=== PATIENT | female | born 1975 | race Two or more races ===

== ENCOUNTER 2020-01-26 15:03 | Emergency (ER) | payer MEDICAID ==
[~2020-01-26] VITALS: Ht 66 cm; Wt 90.7 kg
--- NOTE | 2020-01-26 15:24 | NUR ---
ED Nurse Note: Pt from home walked in due to abd pain that radiates to her back. Also c/o headache, diarrhea and fever at home. temp 99.1 f in triage. Denies coughing or SOB. AAO x4 and ambulatory. No respiratory distress.
[2020-01-26] MEDS ORDERED: Morphine Sulfate 2mg/ml Inj(IV/IM USE ONLY) IVP ONE (15:45)
[2020-01-26] MEDS ORDERED: Metoclopramide 10mg/2ml Inj IVP ONE (15:45)
[2020-01-26] MEDS ORDERED: Omnipaque-300 100ml vial INJ PRN (15:45)
[2020-01-26] MEDS ORDERED: DiphenhydrAMINE 50mg/ml Inj IVP ONE (15:45)
--- NOTE | 2020-01-26 15:52 | Emergency Room Report ---
History of Present Illness General Chief Complaint: Abdominal Pain Source: Patient Present Illness HPI Patient presents with abdominal pain. It has been going on for 6 days. She has a history of gastritis and feels like this is what the cause is. It is epigastric rating towards the back but also radiating down towards the lower abdomen. Yesterday she started having diarrhea that was normal color without any blood. She also felt a fever yesterday but did not document it. She denies any vomiting. She denies any significant COVID-19 exposures at this time and has been social isolating at home and not working. She took acetaminophen last night with some relief of the fever and also a slight decrease in the abdominal pain. She rates the pain 10/10 at this time. She denies dysuria. Her last menstruation was normal and she does not believe she is . No unusual foods or foreign travel. 2 years ago she had a CT scan. She was diagnosed with gastritis. When she was younger and just emigrated to the [place] she cut her left arm. She denies any suicidal or homicidal ideation at this time. Patient denies drinking alcohol or smoking cigarettes. No sore throat, chest pain, palpitations, shortness of breath, joint pain, rashes, depression, anxiety, visual changes, dizziness, headache. Allergies: Coded Allergies: No Known Allergies (Unverified , 01/26/20) COVID-19 Screening Contact w/high risk pt: No Recent Travel to affected area: No Experienced COVID-19 symptoms?: No COVID-19 Testing performed [employer]ODUCTION [employer]: No COVID-19 Screening: Negative COVID-19 Patient History Past Medical History: see triage record Social History: Denies: smoking, alcohol use, drug use Social History Narrative Home Last Menstrual Period: 01/20/20 Now: No Reviewed Nursing Documentation: PMH: Agreed; PSxH: Agreed Nursing Documentation-PMH Past Medical History: No History, Except For Hx Asthma: Yes Review of Systems All Other Systems: negative except mentioned in HPI Physical Exam Vital Signs Date Time Temp Pulse Resp B/P (MAP) Pulse Ox O2 Delivery O2 Flow Rate FiO2 01/26/20 15:14 99.1 105 16 143/80 (101) 98 Room Air Sp02 EP Interpretation: reviewed, normal General Appearance: well appearing, no apparent distress, GCS 15 Head: normocephalic, atraumatic Eyes: bilateral eye normal inspection, bilateral eye PERRL, bilateral eye EOMI ENT: moist mucus membranes Neck: supple Respiratory: lungs clear, normal breath sounds Cardiovascular #1: regular rate, rhythm Cardiovascular #2: 2+ radial (R) Gastrointestinal: normal inspection, normal bowel sounds, no mass, non- distended, no guarding, no rebound, tenderness - Diffuse but more right-sided, overweight Genitourinary: no CVA tenderness Musculoskeletal: back normal, normal range of motion, gait/station normal Neurologic: alert, oriented x3, grossly normal Psychiatric: mood/affect normal Skin: no rash, warm/dry, other - Old intention renteria left forearm Medical Decision Making Diagnostic Impression: Primary Impression: Acute diverticulitis ER Course Pt presents with abdominal pain, possible fever and diarrhea. DDx gastritis, gastroenteritis, diverticulitis, pancreatitis, food poisoning amongst others. Evaluation with labs and CT abdomen. She feels this is her gastritis however with the fever and diarrhea this is less likely. This is a nonsurgical abdomen at this time. Patient treated with Pepcid, Reglan and a small dose of morphine with IV hydration. As she has been social isolating, risk of COVID-19 extremely low. CBC with elevated white count. CMP with minimally elevated glucose and AST. Lipase normal. Urinalysis clear. Serum negative. CT scan reveals uncomplicated diverticulitis. Other findings not contributing to diagnosis. IV antibiotics administered. Patient still complaining about pain. Morphine repeated. Discussed findings with patient. Discussed that she is being observed as an outpatient and if she is not doing well to return. Patient stable for outpatient observation and treatment. Laboratory Tests Test 01/26/20 16:30 White Blood Count 12.5 K/UL (4.8-10.8) H Red Blood Count 5.12 M/UL (4.20-5.40) Hemoglobin 11.9 G/DL (12.0-16.0) L Hematocrit 38.2 % (37.0-47.0) Mean Corpuscular Volume 75 FL (80-99) L Mean Corpuscular Hemoglobin 23.2 PG (27.0-31.0) L Mean Corpuscular Hemoglobin Concent 31.1 G/DL (32.0-36.0) L Red Cell Distribution Width 16.4 % (11.6-14.8) H Platelet Count 211 K/UL (150-450) Mean Platelet Volume 9.3 FL (6.5-10.1) Neutrophils (%) (Auto) 81.5 % (45.0-75.0) H Lymphocytes (%) (Auto) 12.9 % (20.0-45.0) L Monocytes (%) (Auto) 4.1 % (1.0-10.0) Eosinophils (%) (Auto) 1.0 % (0.0-3.0) Basophils (%) (Auto) 0.5 % (0.0-2.0) Prothrombin Time 10.3 SEC (9.30-11.50) Prothrombin Time INR 0.9 (0.9-1.1) Activated Partial Thromboplast Time 29 SEC (23-33) Urine Color Pale yellow Urine Appearance Clear Urine pH 8 (4.5-8.0) Urine Specific Orange 1.015 (1.005-1.035) Urine Protein 2+ (NEGATIVE) H Urine Glucose (UA) Negative (NEGATIVE) Urine Ketones Negative (NEGATIVE) Urine Blood Negative (NEGATIVE) Urine Nitrite Negative (NEGATIVE) Urine Bilirubin Negative (NEGATIVE) Urine Urobilinogen Normal MG/DL (0.0-1.0) Urine Leukocyte Esterase Negative (NEGATIVE) Urine RBC 0 /HPF (0 - 2) Urine WBC 0-2 /HPF (0 - 2) Urine Squamous Epithelial Cells Many /LPF (NONE/OCC) H Urine Amorphous Sediment Moderate /LPF (NONE) H Urine Bacteria Occasional /HPF (NONE) Sodium Level 141 MMOL/L (136-145) Potassium Level 3.7 MMOL/L (3.5-5.1) Chloride Level 103 MMOL/L (98-107) Carbon Dioxide Level 29 MMOL/L (21-32) Anion Gap 9 mmol/L (5-15) Blood Urea Nitrogen 8 mg/dL (7-18) Creatinine 0.7 MG/DL (0.55-1.30) Estimated Glomerular Filtration Rate > 60 mL/min (>60) Glucose Level 110 MG/DL (74-106) H Calcium Level 8.0 MG/DL (8.5-10.1) L Ferritin 32 NG/ML (8-388) Total Bilirubin 0.3 MG/DL (0.2-1.0) Aspartate Amino Transferase (AST) 19 U/L (15-37) Alanine Aminotransferase (ALT) 20 U/L (12-78) Alkaline Phosphatase 133 U/L (46-116) H Lactate Dehydrogenase 194 U/L (81-234) C-Reactive Protein, Quantitative 6.4 mg/dL (0.00-0.90) H Total Protein 7.8 G/DL (6.4-8.2) Albumin 3.2 G/DL (3.4-5.0) L Globulin 4.6 g/dL Albumin/Globulin Ratio 0.7 (1.0-2.7) L Lipase 97 U/L (73-393) Human Chorionic Gonadotropin, Qual Negative (NEGATIVE) CT/MRI/US Diagnostic Results CT/MRI/US Diagnostic Results : Imaging Test Ordered: Abdomen and pelvis Impression 1. Colonic hepatic flexure region findings could represent mild uncomplicated acute diverticulitis or colitis in the proper context. 2. Correlate with outpatient colonoscopy to exclude infiltrative neoplasm after the acute phase of illness has resolved. 3. Prominent mesenteric lymph nodes. This could be incidental, reactive, or could represent mesenteric adenitis in the proper context. 4. Normal appendix. 5. Hepatic steatosis, correlate to exclude steatohepatitis. 6. Consider outpatient pelvic ultrasound for left adnexal 3.8 cm almost assuredly benign functional follicular cyst which is of no acute clinical significance. Last Vital Signs Date Time Temp Pulse Resp B/P (MAP) Pulse Ox O2 Delivery O2 Flow Rate FiO2 01/26/20 21:05 98.8 81 16 144/62 99 Room Air Status: improved Scripts Ondansetron Odt* (ZOFRAN ODT*) 4 Mg Tab.rapdis 4 MG BC EVERY 8 HOURS PRN for Nausea & Vomiting, #6 TAB 0 Refills Prov: Chet Ren MD 01/26/20 Ibuprofen* (MOTRIN*) 600 Mg Tablet 600 MG ORAL Q6H PRN for FOR PAIN, #16 TAB 0 Refills Prov: Chet Ren MD 01/26/20 Acetaminophen With Codeine (T#3) (TYLENOL #3 TAB*) Y Tab 1 TAB ORAL Q8H PRN for For Pain, #8 TAB Prov: Chet Ren MD 01/26/20 Metronidazole* (FLAGYL*) 500 Mg Tablet 500 MG ORAL BID, #14 TAB Prov: Chet Ren MD 01/26/20 Cephalexin* (KEFLEX*) 500 Mg Capsule 500 MG ORAL EVERY 6 HOURS, #28 CAP Prov: Chet Ren MD 01/26/20 Referrals: NOT CHOSEN [facility]/,REFERRING (PCP) Chet Ren MD Jan 26, 2020 15:52
[2020-01-26 16:00] VITALS: BP 138/69
--- NOTE | 2020-01-26 16:43 | NUR ---
ED Nurse Note: Collected blood and urine then sent.
[2020-01-26 16:53] LABS: APPEARANCE,URINE CLEAR; BILIRUBIN, URINE NEGATIVE (NEGATIVE); COLOR,URINE PALE YELLOW; GLUCOSE, URINE (UA) NEGATIVE (NEGATIVE); KETONES,URINE NEGATIVE (NEGATIVE); LEUKOCYTE ESTERASE ,URINE NEGATIVE (NEGATIVE); NITRITE,URINE NEGATIVE (NEGATIVE); PH,URINE 8 (4.5-8.0); PROTEIN,URINE 2+ (NEGATIVE); UROBILINOGEN,URINE NORMAL MG/DL (0.0-1.0)
[2020-01-26 16:59] LABS: BASOPHILS % (AUTO) 0.5 % (0.0-2.0); HEMATOCRIT 38.2 % (37.0-47.0); HEMOGLOBIN 11.9 G/DL (12.0-16.0); LYMPHOCYTES % (AUTO) 12.9 % (20.0-45.0); MEAN CORPUSCULAR VOLUME 75 FL (80-99); MONOCYTES % (AUTO) 4.1 % (1.0-10.0); NEUTROPHILS % (AUTO) 81.5 % (45.0-75.0); PLATELET COUNT 211 K/UL (150-450); RED BLOOD COUNT 5.12 M/UL (4.20-5.40); RED CELL DISTRIBUTION WIDTH 16.4 % (11.6-14.8); WHITE BLOOD COUNT 12.5 K/UL (4.8-10.8)
[2020-01-26 17:04] LABS: ANION GAP 9 mmol/L (5-15); BLOOD UREA NITROGEN 8 mg/dL (7-18); CARBON DIOXIDE 29 MMOL/L (21-32); CHLORIDE 103 MMOL/L (98-107); CREATININE 0.7 MG/DL (0.55-1.30); INR 0.9 (0.9-1.1); POTASSIUM 3.7 MMOL/L (3.5-5.1); SODIUM 141 MMOL/L (136-145)
[2020-01-26 17:23] LABS: ALANINE AMINOTRANSFERASE 20 U/L (12-78); ALBUMIN 3.2 G/DL (3.4-5.0); ALBUMIN/GLOBULIN RATIO 0.7 (1.0-2.7); ALKALINE PHOSPHATASE 133 U/L (46-116); ASPARTATE AMINO TRANSFERASE 19 U/L (15-37); BILIRUBIN,TOTAL 0.3 MG/DL (0.2-1.0); FERRITIN 32 NG/ML (8-388); LACTATE DEHYDROGENASE 194 U/L (81-234)
--- NOTE | 2020-01-26 17:40 | Diagnostic Imaging Report ---
EXAM: CT Abdomen and Pelvis With Intravenous Contrast CLINICAL HISTORY: ABD PAIN TECHNIQUE: Axial computed tomography images of the abdomen and pelvis with intravenous contrast. CTDI is 27 mGy and DLP is 1416 mGy-cm. One or more of the following dose reduction techniques were used: automated exposure control, adjustment of the mA and/or kV according to patient size, use of iterative reconstruction technique. Coronal and sagittal reformatted images were created and reviewed. COMPARISON: No relevant prior studies available. FINDINGS: Lung bases: Unremarkable. No mass. No consolidation. ABDOMEN: Liver: Hepatic steatosis, correlate to exclude steatohepatitis. Gallbladder and bile ducts: Unremarkable. No calcified stones. No ductal dilation. Pancreas: Unremarkable. No mass. No ductal dilation. Spleen: Unremarkable. No splenomegaly. Adrenals: Unremarkable. No mass. Kidneys and ureters: Unremarkable. No solid mass. No hydronephrosis. Stomach and bowel: Hepatic flexure pericolonic haziness and stranding could represent mild uncomplicated acute diverticulitis without perforation or abscess or could represent an infectious or inflammatory colitis. Regional mild mesenteric vascular prominence suggests hyperemia. Coronal series 9 image 29, sagittal series 10 image 59, axial series 5, image 44. Correlate with outpatient colonoscopy to exclude infiltrative neoplasm after the acute phase of illness has resolved. No obstruction. PELVIS: Appendix: Normal appendix. Bladder: Unremarkable. No mass. Reproductive: Consider outpatient pelvic ultrasound for left adnexal 3. 8 cm almost assuredly benign functional follicular cyst which is of no acute clinical significance. ABDOMEN and PELVIS: Intraperitoneal space: Unremarkable. No free air. No significant fluid collection. Bones/joints: No acute fracture. No dislocation. Soft tissues: Unremarkable. Vasculature: Unremarkable. No abdominal aortic aneurysm. Lymph nodes: Prominent mesenteric lymph nodes. This could be incidental, reactive, or could represent mesenteric adenitis in the proper context. Other findings: Otherwise unremarkable. Gynecologic structures. IMPRESSION: 1. Colonic hepatic flexure region findings could represent mild uncomplicated acute diverticulitis or colitis in the proper context. 2. Correlate with outpatient colonoscopy to exclude infiltrative neoplasm after the acute phase of illness has resolved. 3. Prominent mesenteric lymph nodes. This could be incidental, reactive, or could represent mesenteric adenitis in the proper context. 4. Normal appendix. 5. Hepatic steatosis, correlate to exclude steatohepatitis. 6. Consider outpatient pelvic ultrasound for left adnexal 3.8 cm almost assuredly benign functional follicular cyst which is of no acute clinical significance.
[2020-01-26] MEDS ORDERED: cefTRIAXone 1 GM in NS 55 ML IVPB ONE (18:15)
[2020-01-26] MEDS ORDERED: ACETAMINOPHEN-1 EAC1 ORAL (18:42)
[2020-01-26] MEDS ORDERED: IBUPROFEN600 M1 ORAL (18:42)
[2020-01-26] MEDS ORDERED: METRONIDAZOLE500 MG ORAL (18:42)
[2020-01-26] MEDS ORDERED: CEPHALEXIN500 MG ORAL (18:42)
[2020-01-26] MEDS ORDERED: ONDANSETRON ODT4 MG BC (18:43)
--- NOTE | 2020-01-26 19:22 | NUR ---
HAND-OFF: Report given to Alvina ALLEN.
--- NOTE | 2020-01-26 19:30 | NUR ---
ED Nurse Note: Recieved report to resume care, pt in bed awake and alert, recieving IV fluids as orded then to be d/c to home, IV site patent, pt reports pain at 5/10, no sob, cp or labored breathing.
[2020-01-26 19:45] VITALS: BP 144/62
[2020-01-26] MEDS ORDERED: Morphine Sulfate 4mg/ml Inj (IV USE ONLY) IVP ONE (20:45)
--- NOTE | 2020-01-26 21:00 | NUR ---
ER DISCHARGE NOTE: Patient is cleared to be discharged per ERMD, pt is aox4, on room air, with stable vital signs. pt was given dc and prescription instructions, pt was able to verbalize understanding, pt id band and iv site removed without complications. pt is able to ambulate with steady gait. pt took all belongings.
[2020-01-26 21:05] VITALS: BP 144/62
== END 2020-01-26 21:05 | disposition home or self-care (01) ==
LOC: EMR 15:30
DX: K57.92 Diverticulitis of intestine, part unspecified, without perforation or abscess without bleeding (principal); E66.3 Overweight; Z68.45 Body mass index [BMI] 70 or greater, adult
CPT/HCPCS: 36415; 74177; 80053; 81003; 82728; 83615; 83690; 84703; 85025; 85610; 85730; 86140; 96361; 96365; 96368; 96375; 96376; J0696; J1200; J2270; J2765; J7030; Q9967; S0028; Z7502; 99284